=== PATIENT | male | born 1955 | race Caucasian/White ===

== ENCOUNTER → 2017-04-30 | Outpatient (CLI) | payer BC ==
--- NOTE | 2017-05-07 12:52 | Pulmonary Function Test ---
DATE OF STUDY: April 30, 2017 SPIROMETRY: Spirometry demonstrates very severe obstruction as noted by decreased FEV1 of 1.33 liters or 34% of predicted and decreased FVC of 3.07 liters or 60% of predicted in the setting of decreased FEV1/FVC ratio. After bronchodilator administration, there was no statistically significant change in spirometry. Flow volume loop demonstrates scooped up obstructive limb with normal inspiratory limb suggestive of emphysema. LUNG VOLUMES: Lung volumes as measured by nitrogen washout testing demonstrated no evidence of restriction. Total lung capacity was 8.34 liters or 110% of predicted. Severe hyperinflation and air trapping were noted with increased RV of 197% of predicted. DIFFUSION CAPACITY: Diffusion capacity was moderately decreased at 13.32 mL per mmHg per minute or 41% of predicted. SIX-MINUTE WALK DISTANCE: Patient ambulated 1200 feet or 365.8 meters over 6 minutes. Oxygen saturation was 95% at the beginning of the study and ended at 97%. Patient did not stop during this test. SUMMARY: Very severe obstruction, moderate diffusion impairment. Additional hyperinflation and air trapping. This is most often seen in emphysema. A 6-minute walk distance of 365.8 meters noted. Job#: [id number]
== END ==
LOC: RESP 14:33
PROVIDERS: ATTEND Internal Medicine Critical Care Medicine
DX: J43.9 Emphysema, unspecified (principal); Z87.891 Personal history of nicotine dependence; K21.0 Gastro-esophageal reflux disease with esophagitis
CPT/HCPCS: 94060; 94727; 94729

== ENCOUNTER → 2017-05-07 | Outpatient (CLI) | payer BC ==
--- NOTE | 2017-05-07 17:08 | Diagnostic Imaging Report ---
PROCEDURE: Frontal and lateral views of the chest. COMPARISON: None. INDICATIONS: PT FELL , LEFT UPPER CHEST PAIN FINDINGS: Lines/tubes: None. Lungs: The lungs are well inflated and clear. There is no evidence of pneumonia or pulmonary edema. Pleura: There is no pleural effusion or pneumothorax. Heart and mediastinum: The heart and the mediastinum are normal. Bones: No acute bony abnormality. IMPRESSION: 1. No acute cardiopulmonary disease. Dictated by: Candelario Leblanc M.D. on 05/07/2017 at 17:08 Electronically approved by: Candelario Leblanc M.D. on 05/07/2017 at 17:08
--- NOTE | 2017-05-07 17:10 | Diagnostic Imaging Report ---
PROCEDURE:X-RAY LEFT SHOULDER, COMPLETE COMPARISON:None. INDICATIONS:LEFT SHOULDER SCAPULA PAIN FINDINGS: There are no fractures, dislocations, lytic or blastic lesions. The bones are well-mineralized. The soft-tissues are unremarkable. Adequate internal and external rotation. CONCLUSION: No acute fracture or dislocation of the left shoulder. Dictated by: Candelario Leblanc M.D. on 05/07/2017 at 17:10 Electronically approved by: Candelario Leblanc M.D. on 05/07/2017 at 17:10
--- NOTE | 2017-05-07 17:19 | Diagnostic Imaging Report ---
PROCEDURE:X-RAY LEFT ELBOW, COMPLETE COMPARISON:None. INDICATIONS:FELL, HIT ELBOW ON CABINET WEDNESDAY, BRUISING TO LOWER LEFT ARM FINDINGS: There are no fractures, dislocations, lytic or blastic lesions. The bones are well-mineralized. The soft-tissues are unremarkable. CONCLUSION: No acute fracture or dislocation of the left elbow. Dictated by: Candelario Leblanc M.D. on 05/07/2017 at 17:19 Electronically approved by: Candelario Leblanc M.D. on 05/07/2017 at 17:19
== END ==
LOC: RAD 16:01
PROVIDERS: ATTEND Internal Medicine
DX: G89.11 Acute pain due to trauma (principal); M79.602 Pain in left arm
CPT/HCPCS: 71046

== ENCOUNTER → 2018-01-04 | Outpatient (CLI) | payer BC ==
--- NOTE | 2018-01-05 07:51 | Diagnostic Imaging Report ---
EXAM: CT Chest without contrast DATE/TIME: 01/04/2018 4:00 PM INDICATION: COPD, evaluate for lung nodule COMPARISON: None TECHNIQUE: Chest was scanned utilizing a multidetector helical scanner from the lung apex through the level of the adrenal glands without administration of IV contrast. Coronal and sagittal reformations were obtained. Routine protocol was performed. RADIATION DOSE: Total DLP: 277.8 mGy*cm Estimated effective dose: (DLP x 0.014 x size factor) mSv COMPLICATIONS: None FINDINGS: LINES/ TUBES: None. LUNGS AND AIRWAYS: Bilateral solid nodules are noted. The largest nodule in the right lower lobe is calcified and measures 7 mm on series 142, image 108. A solid pulmonary nodule in the right lower lobe measures 4 mm on image 104. Lobulated solid nodule in the left lower lobe measuring 6 mm on image 78. Multiple other bilateral 1-2 mm solid pulmonary nodules. Scattered areas of tree in bud opacities and clustered nodules, for example in the left lower lobe on image 111 and 113. The central airways are patent. Moderate predominately centrilobular emphysematous changes of the lungs. There is mild diffuse bronchial wall thickening. Mild biapical pleural parenchymal opacity. PLEURA: The pleural spaces are clear. HEART AND MEDIASTINUM: The thyroid gland is normal. No mediastinal, hilar or axillary lymphadenopathy. No pericardial effusion. Coronary and aortic atherosclerosis. Calcified hilar and subcarinal lymph nodes. UPPER ABDOMEN: Limited non-contrast views of the upper abdomen show no abnormality within the visualized spleen, pancreas, or kidneys. The adrenal glands are normal. Moderate hiatal hernia. A 1.1 cm left hepatic lobe hypodensity, likely representing a cyst. BONES: No acute bony changes. No suspicious lytic or blastic lesions. SOFT TISSUES: Unremarkable. IMPRESSION: Moderate emphysematous changes of the lungs with bilateral solid pulmonary nodules measuring up to 6 mm. In a higher risk patient, a follow-up chest CT in 3-6 months is suggested. Scattered tree in bud and clustered nodules, likely infectious or inflammatory. Sequela of prior granulomatous disease with calcified pulmonary nodules and mediastinal lymph nodes and biapical pleural-parenchymal opacity. Signed by: Dr. Aaron Scales MD on 01/05/2018 7:47 AM
== END ==
LOC: CT 15:39
PROVIDERS: ATTEND Internal Medicine Critical Care Medicine
DX: C34.90 Malignant neoplasm of unspecified part of unspecified bronchus or lung (principal); R06.02 Shortness of breath; J45.909 Unspecified asthma, uncomplicated; J44.9 Chronic obstructive pulmonary disease, unspecified; K21.9 Gastro-esophageal reflux disease without esophagitis; Z87.891 Personal history of nicotine dependence
CPT/HCPCS: 71250

== ENCOUNTER → 2020-10-18 | Outpatient (CLI) | payer BC | LOC: CT 12:53 | PROVIDERS: ATTEND Internal Medicine Critical Care Medicine | DX: R06.02 Shortness of breath (principal); C34.90 Malignant neoplasm of unspecified part of unspecified bronchus or lung; J45.909 Unspecified asthma, uncomplicated; J44.9 Chronic obstructive pulmonary disease, unspecified; K21.9 Gastro-esophageal reflux disease without esophagitis; J98.4 Other disorders of lung; Z87.891 Personal history of nicotine dependence | CPT/HCPCS: 71250 ==

== ENCOUNTER → 2021-01-20 | Outpatient (CLI) | payer BC | LOC: CT 13:23 | PROVIDERS: ATTEND Internal Medicine Critical Care Medicine | DX: R06.02 Shortness of breath (principal); J44.9 Chronic obstructive pulmonary disease, unspecified; C34.90 Malignant neoplasm of unspecified part of unspecified bronchus or lung; J98.4 Other disorders of lung; J45.909 Unspecified asthma, uncomplicated; K21.9 Gastro-esophageal reflux disease without esophagitis; Z87.891 Personal history of nicotine dependence | CPT/HCPCS: 71250 ==

== ENCOUNTER → 2021-05-16 | Outpatient (CLI) | payer BC | LOC: CT 13:42 | PROVIDERS: ATTEND Internal Medicine Critical Care Medicine | DX: R06.02 Shortness of breath (principal); C34.90 Malignant neoplasm of unspecified part of unspecified bronchus or lung; J44.9 Chronic obstructive pulmonary disease, unspecified; J98.4 Other disorders of lung; J45.909 Unspecified asthma, uncomplicated; K21.9 Gastro-esophageal reflux disease without esophagitis; Z87.891 Personal history of nicotine dependence | CPT/HCPCS: 71250 ==

== ENCOUNTER → 2021-09-29 | Outpatient (CLI) | payer BC | LOC: CT 15:37 | PROVIDERS: ATTEND Internal Medicine Critical Care Medicine | DX: R06.02 Shortness of breath (principal); C34.90 Malignant neoplasm of unspecified part of unspecified bronchus or lung; J44.9 Chronic obstructive pulmonary disease, unspecified; J98.4 Other disorders of lung; J45.909 Unspecified asthma, uncomplicated; K21.9 Gastro-esophageal reflux disease without esophagitis; Z87.891 Personal history of nicotine dependence | CPT/HCPCS: 71250 ==

== ENCOUNTER → 2022-12-25 | Outpatient (REF) | payer BC | LOC: CT 13:13 | PROVIDERS: ATTEND Nurse Practitioner Family | DX: R06.02 Shortness of breath (principal); J98.4 Other disorders of lung; J44.9 Chronic obstructive pulmonary disease, unspecified; C34.90 Malignant neoplasm of unspecified part of unspecified bronchus or lung; J45.909 Unspecified asthma, uncomplicated; K21.9 Gastro-esophageal reflux disease without esophagitis; Z87.891 Personal history of nicotine dependence | CPT/HCPCS: 71250 ==

== ENCOUNTER → 2023-06-25 | Outpatient (REF) | payer BC | LOC: CT 15:10 | PROVIDERS: ATTEND Nurse Practitioner Family | DX: C34.90 Malignant neoplasm of unspecified part of unspecified bronchus or lung (principal); R06.02 Shortness of breath; J98.4 Other disorders of lung; J44.9 Chronic obstructive pulmonary disease, unspecified; K21.9 Gastro-esophageal reflux disease without esophagitis; J45.909 Unspecified asthma, uncomplicated; Z87.891 Personal history of nicotine dependence | CPT/HCPCS: 71250 ==

== ENCOUNTER 2023-09-20 12:38 | Emergency (ER) | payer BC, MEDICARE ==
[~2023-09-20] VITALS: Ht 182.9 cm; Wt 87.1 kg
[2023-09-20] MEDS ORDERED: CEFTRIAXONE 1 GM VIAL IV ONE (14:00)
[2023-09-20 14:20] LABS: BASOPHILS % 0.3 % (0.0-1.0); EOSINOPHILS % 0.2 % (0.0-6.0); HEMATOCRIT 39.8 % (38.2-49.6); HEMOGLOBIN 12.4 g/dL (14.0-18.0); LYMPHOCYTES # (AUTO) 0.6 (1.0-3.2); LYMPHOCYTES % 7.1 % (18.0-39.1); MEAN CORPUSCULAR HEMOGLOBIN 25.2 pg (28-32); MEAN CORPUSCULAR HGB CONC 31.2 g/dL (31-35); MEAN CORPUSCULAR VOLUME 80.7 fL (81-99); NEUTROPHILS # (AUTO) 7.1 (2.1-6.9); NEUTROPHILS % 81.2 % (38.7-80.0); PLATELET COUNT 263 x10e3/uL (140-360); RED BLOOD COUNT 4.93 x10e6/uL (4.3-5.7); WHITE BLOOD COUNT 8.78 x10e3/uL (4.8-10.8)
[2023-09-20] MEDS: METHYLPREDNISOLONE SOD SUCC 125 MG/2ML VIAL IV ONE (14:30)
[2023-09-20] MEDS: AZITHROMYCIN 250 MG TAB PO SCH (14:30)
[2023-09-20 14:34] LABS: PROTHROMBIN TIME 13.9 seconds (11.9-14.5)
[2023-09-20 14:35] LABS: PARTIAL THROMBOPLASTIN TIME 43.1 seconds (23.8-35.5)
[2023-09-20 14:43] LABS: ALBUMIN 3.8 g/dL (3.5-5.0); ANION GAP 17.4 mmol/L (8-16); BILIRUBIN,TOTAL 2.2 mg/dL (0.2-1.2); CALCIUM 9.9 mg/dL (8.4-10.2); CREATININE, SERUM 1.22 mg/dL (0.72-1.25); TOTAL PROTEIN 7.8 g/dL (6.5-8.1)
[2023-09-20 14:45] LABS: POTASSIUM 3.4 mmol/L (3.5-5.1)
[2023-09-20 16:20] VITALS: TEMP 100.7
[2023-09-20] MEDS: SODIUM CHLORIDE 0.9% 1000ML 1,000 ML IV ONE (16:37)
[2023-09-20] MEDS: ACETAMINOPHEN 325 MG TAB PO ONE (16:39)
[2023-09-20] MEDS ORDERED: PREDNISONE20 MG PO (16:55)
[2023-09-20] MEDS ORDERED: ZITHROMAX500 MG PO (16:56)
[2023-09-20] MEDS ORDERED: BENZONATATE200 MG PO (16:57)
[2023-09-20] MEDS: HYDROCODONE/CHLORPHENIRAMINE 5 ML LIQCR PO ONE (17:54)
[2023-09-20 18:00] VITALS: PULSE 79; RESP 19; O2SAT 95
== END 2023-09-20 18:28 | disposition home or self-care (01) ==
LOC: ER 13:57
DX: R50.9 Fever, unspecified (principal); B97.4 Respiratory syncytial virus as the cause of diseases classified elsewhere; J44.9 Chronic obstructive pulmonary disease, unspecified; R05.9 Cough, unspecified; R06.2 Wheezing; R01.1 Cardiac murmur, unspecified; K21.9 Gastro-esophageal reflux disease without esophagitis; Z11.52 Encounter for screening for COVID-19; R94.31 Abnormal electrocardiogram [ECG] [EKG]
CPT/HCPCS: 36415; 71046; 80053; 83605; 83880; 84484; 85025; 85610; 85730; 87420; 93005; 99284; J0696; J2919; J7030; U0002

== ENCOUNTER → 2023-10-27 | Outpatient (REF) | payer BC, MEDICARE ==
[~2023-10-27] MED LIST: BENZONATATE200 MG PO; PREDNISONE20 MG PO; ZITHROMAX500 MG PO
== END ==
LOC: RAD 09:16
PROVIDERS: ATTEND Nurse Practitioner Family
DX: R06.02 Shortness of breath (principal); J44.9 Chronic obstructive pulmonary disease, unspecified; R05.9 Cough, unspecified; B97.4 Respiratory syncytial virus as the cause of diseases classified elsewhere
CPT/HCPCS: 71046

== ENCOUNTER → 2024-06-23 | Outpatient (REF) | payer BC, MEDICARE | LOC: CT 12:49 | PROVIDERS: ATTEND Nurse Practitioner Family | DX: J44.9 Chronic obstructive pulmonary disease, unspecified (principal); R91.8 Other nonspecific abnormal finding of lung field; J98.4 Other disorders of lung | CPT/HCPCS: 71250 ==

== ENCOUNTER → 2024-09-28 | Outpatient (REF) | payer BC, MEDICARE | LOC: EDSTATUS 09-14 13:00 → RESP 13:46 | PROVIDERS: ATTEND Nurse Practitioner Family | DX: R06.02 Shortness of breath (principal); C34.90 Malignant neoplasm of unspecified part of unspecified bronchus or lung; J06.9 Acute upper respiratory infection, unspecified; J30.9 Allergic rhinitis, unspecified; J44.9 Chronic obstructive pulmonary disease, unspecified; R91.8 Other nonspecific abnormal finding of lung field; J98.4 Other disorders of lung; B97.4 Respiratory syncytial virus as the cause of diseases classified elsewhere; K21.9 Gastro-esophageal reflux disease without esophagitis; Z87.891 Personal history of nicotine dependence | CPT/HCPCS: 94060; 94727; 94729 ==

== ENCOUNTER → 2024-10-20 | Outpatient (REF) | payer BC | LOC: CT 15:20 | PROVIDERS: ATTEND Nurse Practitioner Family | DX: J98.4 Other disorders of lung (principal); R91.8 Other nonspecific abnormal finding of lung field | CPT/HCPCS: 71250 ==